=== PATIENT | male | born 1950 | race Caucasian/White ===

== ENCOUNTER 2016-10-30 15:46 | Outpatient (CLI) | payer OTHER, MEDICARE ==
[~2016-10-30 15:46] MED LIST: CARVEDILOL12.5 MG PO; FENOFIBRATE MIC67 MG PO; GEMFIBROZIL600 MG PO; IBUPROFEN600 MG PO; LANTUS SOL100 UNITS/ SC; LOVASTATIN40 MG PO; MIRALAX EQUIVAL17 GM PO; NAPROSYN250 MG PO; NEURONTIN300 MG PO; SOLARAZE3 %/W
== END 2016-10-30 23:00 ==
LOC: LAB SRH 15:46
DX: E11.8 Type 2 diabetes mellitus with unspecified complications (principal)
CPT/HCPCS: 90074; 91286

== ENCOUNTER 2016-12-03 17:44 | Outpatient (CLI) | payer OTHER, MEDICARE ==
--- NOTE | 2016-12-03 18:20 | DIAGNOSTIC IMAGING REPORT ---
PROCEDURE: XR TOE - LEFT INDICATION: SPRAIN OF TOE FIFTH LEFT TECHNIQUE: A P foot and two views of the left fifth toe. COMPARISON: None FINDINGS: There is a nondisplaced fracture of the proximal phalanx of the fifth toe. The fracture parallels the axis of the bone. No suspicious soft-tissue calcification or radiodense foreign bodies. IMPRESSION: 1. Nondisplaced fracture proximal phalanx fifth digit left foot.
== END 2016-12-03 23:00 ==
LOC: XR SRH 17:44
DX: S92.812A Other fracture of left foot, initial encounter for closed fracture (principal)

== ENCOUNTER 2016-12-18 11:56 | Outpatient (CLI) | payer OTHER, MEDICARE ==
--- NOTE | 2016-12-18 13:26 | DIAGNOSTIC IMAGING REPORT ---
PROCEDURE: XR MAJOR JT INJ OR ASPIRATION INDICATION: OA RT HIP TECHNIQUE: The patient was advised of the usual risks and complications including infection, bleeding, and allergy. Supine position. Following sterile preparation and 1% lidocaine anesthetic, fluoroscopic guidance (2.3 minutes, 1169.06 mGy) was utilized to place a 22- gauge spinal needle into the anterolateral aspect of the right joint. Intraarticular position was confirmed with 2 mL of Isovue 200 contrast material. Subsequently, a 6 mL solution (2 mL 40 mg/mL Kenalog, 2 mL 1% lidocaine, 2 mL 0.5% Marcaine) was infused and the needle was withdrawn. COMPARISON: None. FINDINGS: Six AP views. Confirmation of intraarticular injection. There are severe arthritic change of the right hip joint with sub total joint space narrowing. The patient tolerated the procedure reasonably well and was discharged home in satisfactory condition with instructions to resume routine activity the following day, and to call for any untoward symptoms (increasing pain/swelling). IMPRESSION: 1. Successful fluoroscopically guided therapeutic injection of the right hip joint.
== END 2016-12-18 23:00 ==
LOC: XR SRH 11:56
PROC: 3E0U3GC Introduction of Other Therapeutic Substance into Joints, Percutaneous Approach (ICD-10-PCS; principal; 2016-12-18)
PROC: BQ101ZZ Fluoroscopy of Right Hip using Low Osmolar Contrast (ICD-10-PCS; 2016-12-18)
DX: M16.11 Unilateral primary osteoarthritis, right hip (principal)
CPT/HCPCS: 82445

== ENCOUNTER 2017-01-16 12:30 | Outpatient (CLI) | payer OTHER, MEDICARE ==
--- NOTE | 2017-01-16 12:51 | DIAGNOSTIC IMAGING REPORT ---
PROCEDURE: US SOFT TISSUE THYR/NECK/HEAD INDICATION: MASS OF NECK TECHNIQUE: Fonseca scale and color Doppler sonographic images of the palpable right neck mass were acquired. COMPARISON: None. FINDINGS: In the area of palpable abnormality, there is of subcutaneous, well-defined, encapsulated, ovoid, horizontally oriented structure measuring 4.1 x 4.0 x 1.7 cm in the right neck lateral to the carotid space. It demonstrates homogeneous hyperechoic echotexture. No internal or peripheral vascularity. No suspicious posterior shadows or internal microcalcifications. The underlying muscle appears normal without infiltration. IMPRESSION: 1. 4.1 cm right neck subcutaneous lipoma.
== END 2017-01-16 23:00 ==
LOC: US SRH 12:30
DX: R22.1 Localized swelling, mass and lump, neck (principal)

== ENCOUNTER 2017-04-18 09:41 | Outpatient (CLI) | payer OTHER ==
[~2017-04-18 09:41] MED LIST changes: -SOLARAZE3 %/W; +SOLARAZE3 %/W TOP
--- NOTE | 2017-04-18 10:20 | DIAGNOSTIC IMAGING REPORT ---
PROCEDURE: XR CHEST 2 VIEW INDICATION: PRE OP TECHNIQUE: PA and lateral views. COMPARISON: None. FINDINGS: Lungs are clear. Heart and mediastinum are normal. Thorax is normal. IMPRESSION: 1. Negative chest.
[2017-04-25] MEDS ORDERED: NORCO1 TAB PO (13:33)
[2017-04-25] MEDS ORDERED: TRAMADOL HCL50 MG PO (13:34)
[2017-04-25] MEDS ORDERED: HUMALOG100 MG/ML SC (13:45)
== END 2017-04-18 23:00 ==
LOC: RT SRH 09:41
DX: Z01.818 Encounter for other preprocedural examination (principal); Z01.812 Encounter for preprocedural laboratory examination; M16.11 Unilateral primary osteoarthritis, right hip
CPT/HCPCS: 90001; 90004; 90074; 90100; 90155; 91004; 91286; 94060; 95059; 95150